=== PATIENT | male | born 1995 | race Caucasian/White ===

== ENCOUNTER 2023-09-03 12:39 | Emergency (ER) | payer OTHER ==
[~2023-09-03] VITALS: Ht 177.8 cm; Wt 86.2 kg
[2023-09-03 12:42] VITALS: BP 120/64; PULSE 90; RESP 18; TEMP 97.4; O2SAT 97
[2023-09-03] MEDS: NACL 0.9% 1,000 ML IV ONE ×2 (13:26→15:02)
[2023-09-03 13:46] LABS: BASOPHILS % (AUTO) 0.1 % (0.0-2.0); EOSINOPHILS % (AUTO) 0.2 % (0.0-4.0); HEMATOCRIT 48.7 % (36-52); HEMOGLOBIN 16.6 g/dL (12.0-18.0); MEAN CORPUSCULAR HEMOGLOBIN 30 pg (27-31); MEAN CORPUSCULAR HGB CONC 34 g/dL (33-37); MEAN CORPUSCULAR VOLUME 88.6 fL (80-94); MONOCYTES # (AUTO) 0.5 K/uL (0.8-1.0); MONOCYTES % (AUTO) 3.5 % (1.7-9.3); NEUTROPHILS # (AUTO) 12.7 K/uL (1.8-7.7); NEUTROPHILS % (AUTO) 89.2 % (42.2-75.2); PLATELET COUNT (AUTO) 320 K/uL (140-450); RED CELL DISTRIBUTION WIDTH 13.2 % (11.6-13.7); WHITE BLOOD COUNT (AUTO) 14.2 K/uL (4.8-10.8)
[2023-09-03 14:43] LABS: ALANINE AMINOTRANSFERASE 31 U/L (12-78); ALBUMIN 3.8 g/dL (3.4-5.0); ALCOHOL, BLOOD < 3 mg/dL (<10); ALKALINE PHOSPHATASE 50 U/L (50-136); ANION GAP 19.4 (8-16); ASPARTATE AMINOTRANSFERASE 19 U/L (15-37); CALCIUM 9.4 mg/dL (8.5-10.1); CARBON DIOXIDE 20.6 mmol/L (21-32); CHLORIDE 104 mmol/L (98-107); CREATININE 1.8 mg/dL (0.6-1.3); GFR ARICAN-AMERICAN 58 mL/min (>90); GFR NON ARICAN-AMERICAN 48 mL/min (>90); GLUCOSE 136 mg/dL (74-106); MAGNESIUM 2.9 mg/dL (1.8-2.4); SODIUM SERUM 140 mmol/L (136-145); TOTAL BILIRUBIN 0.5 mg/dL (0.0-1.0); TOTAL PROTEIN, SERUM 7.3 g/dL (6.4-8.2); UREA NITROGEN, BLOOD 15 mg/dL (7-18)
[2023-09-03 17:13] LABS: APPEARANCE,URINE CLEAR (CLEAR); BILIRUBIN,URINE NEGATIVE (NEGATIVE); BLOOD, URINE NEGATIVE (NEGATIVE); COLOR,URINE YELLOW (YELLOW); LEUKOCYTE ESTERASE ,URINE NEGATIVE (NEGATIVE); NITRITE, URINE NEGATIVE (NEGATIVE); PROTEIN,URINE NEGATIVE (NEGATIVE); UGLUCOSE NEGATIVE (NEGATIVE); UROBILINOGEN,URINE 0.2 EU/dL (0.2 - 1)
[2023-09-03] MEDS: ACETAMINOPHEN EXTRA STRENGTH 500 MG TAB PO ONE (17:17)
[2023-09-03] MEDS: KETOROLAC 30 MG/ML VIAL IVP ONE (17:19)
[2023-09-03 17:21] LABS: AMPHETAMINE, URINE NEGATIVE ng/ml (NEG <=1000); BARBITURATE, URINE NEGATIVE ng/ml (NEG <=200); BENZODIAZEPINE, URINE POSITIVE ng/mL (NEG <=200); CANNABINOID, URINE NEGATIVE ng/mL (NEG <=50); COCAINE, URINE NEGATIVE ng/mL (NEG <=300); OPIATE, URINE NEGATIVE ng/mL (NEG <=2000); PHENCYCLIDINE SCREEN,URINE NEGATIVE ng/mL (NEG <=25)
[2023-09-03] MEDS: ONDANSETRON 4 MG/2 ML VIAL IVP ONE (18:05)
[2023-09-03] MEDS ORDERED: ONDA-188 PO (18:19)
[2023-09-03] MEDS ORDERED: IBUP-1842 PO (18:19)
[2023-09-03 20:20] VITALS: BP 130/80; PULSE 60; RESP 17; TEMP 98; O2SAT 97
== END 2023-09-03 20:20 | disposition home or self-care (01) ==
LOC: MED 12:39
DX: R56.9 Unspecified convulsions (principal); M25.511 Pain in right shoulder; F13.90 Sedative, hypnotic, or anxiolytic use, unspecified, uncomplicated; E86.0 Dehydration; E87.20 Acidosis, unspecified
CPT/HCPCS: 36415; 70450; 71045; 72125; 73030; 80053; 80305; 81003; 82550; 83605; 83735; 84484; 85025; 93005; 96361; 96374; 96375; 99291; G0482; J1885; J2405; J7030; Q0092